=== PATIENT | male | born 1985 | race Caucasian/White ===

== ENCOUNTER 2021-04-03 19:43 | Emergency (ER) | payer OTHER ==
[~2021-04-03] VITALS: Ht 182.9 cm; Wt 83.9 kg
[2021-04-03] MEDS ORDERED: PROAIR HFA8.5 GM INH (21:10)
[2021-04-03] MEDS ORDERED: AUGMENTIN 875-1 EACH PO (21:10)
[2021-04-03 21:15] VITALS: BP 103/54
== END 2021-04-03 21:18 | disposition home or self-care (01) ==
LOC: M.ERS 19:43
DX: U07.1 COVID-19 (principal); J12.82 Pneumonia due to coronavirus disease 2019